=== PATIENT | male | born 1975 | race Caucasian/White ===

== ENCOUNTER 2019-12-21 04:12 | Inpatient (IN) | payer OTHER ==
[~2019-12-21] VITALS: Ht 175.3 cm; Wt 81.6 kg
--- NOTE | 2019-12-21 04:15 | NUR ---
C/O R BUTTOCK REDNESS, SWELLING X1 WEEK. ADMITS TO INJECTING HEROIN 1 WEEK AGO.
--- NOTE | 2019-12-21 04:29 | NUR ---
DR. KURTZ AT THE BED SIDE
[2019-12-21] MEDS ORDERED: VANCOMYCIN 1 GM in IV D5W 250 ML IV ONE (04:30)
[2019-12-21] MEDS ORDERED: VANCOMYCIN 1 GM VIAL ONE (04:31)
[2019-12-21] MEDS ORDERED: PIPERACILLIN /TAZOBACTAM 3.375 G VIAL IV ONE (04:31)
[2019-12-21] MEDS: PIPERACILLIN /TAZOBACTAM 3.375 G in IV D5W 50 ML IV ONE ×2 (04:50→05:00)
--- NOTE | 2019-12-21 04:50 | NUR ---
Tila ball in [facility] - 12/21/19 at 0519 by RUSSELL END TIME FOR ZOSYN: 0520 IV SITE: L ROCIO 20G
[2019-12-21 04:51] LABS: BASOPHILS # (AUTO) 0.1 /CMM (0.0-0.2); BASOPHILS % (AUTO) 0.4 % (0.0-2.0); EOSINOPHILS % (AUTO) 0.6 % (0.0-6.0); HEMATOCRIT 41 % (39-51); HEMOGLOBIN 13.7 g/dL (13.5-17.5); LYMPHOCYTES # (AUTO) 0.8 /CMM (0.8-4.8); LYMPHOCYTES % (AUTO) 6.7 % (20.0-44.0); MEAN CORPUSCULAR HGB CONC 33 g/dl (31.0-36.0); MEAN CORPUSCULAR VOLUME 79 fL (80-96); MONOCYTES # (AUTO) 0.8 /CMM (0.1-1.30); MONOCYTES % (AUTO) 6.3 % (2.0-12.0); NEUTROPHILS # (AUTO) 10.7 /CMM (1.8-8.9); PLATELET COUNT (AUTO) 405 /CMM (150-450); RED BLOOD CELL COUNT(AUTO) 5.23 MIL/uL (4.5-6.0); WHITE BLOOD COUNT (AUTO) 12.4 K/uL (4.3-11.0)
--- NOTE | 2019-12-21 05:00 | NUR ---
END TIME FOR ZOSYN: 0530 IV SITE: L THUMB 20G
[2019-12-21 05:01] LABS: CALCIUM, SERUM 8.9 mg/dL (8.5-10.1); CREATININE 0.9 mg/dL (0.6-1.3); POTASSIUM 3.9 mmol/L (3.5-5.1)
[2019-12-21] MEDS ORDERED: MAGNESIUM HYDROXIDE 30 ML UDC PO PRN (06:30)
[2019-12-21] MEDS ORDERED: ZOLPIDEM TARTRATE 5 MG TABLET PO PRN (06:30)
[2019-12-21] MEDS ORDERED: ONDANSETRON HCL/PF 4 MG/2 ML VIAL IVP PRN (06:30)
[2019-12-21] MEDS ORDERED: MAG HYDROX/AL HYDROX/SIMETH 30 ML UDC PO PRN (06:30)
[2019-12-21] MEDS ORDERED: Z GUARD REMEDY 2 OZ OINT TP PRN (06:30)
[2019-12-21] MEDS ORDERED: ACETAMINOPHEN 325 MG TABLET PO PRN (06:30)
--- NOTE | 2019-12-21 06:43 | NUR ---
BED ASSIGNMENT 321-1
[2019-12-21] MEDS ORDERED: FLUO10CA26 PO (06:46)
[2019-12-21] MEDS ORDERED: GABA-534 PO (06:46)
--- NOTE | 2019-12-21 06:49 | NUR ---
REPORT GIVEN TO RUDY
[2019-12-21] MEDS ORDERED: CLINDAMYCIN IV RTU IN D5W 900 MG/50 ML PIGGYBACK IV SCH (07:00)
--- NOTE | 2019-12-21 07:03 | NUR ---
PT WAS TRANSFERRED TO THE THIRD FLOOR IN STABLE CONDITION.
--- NOTE | 2019-12-21 07:15 | NUR ---
MS RN NOTES RECEIVED PATIENT IN BED, ALERT AND ORIENTED X4. ADMITTED TO UNIT. HOB ELEVATED. ORIENTED PATIENT TO ROOM, UNIT AND CALL LIGHT. RIGHT BUTTOCK ABSCESS RED, FIRM AND TENDER TO TOUCH. AMBULATORY WITH STEADY GAIT. DURING INTERVIEW, PATIENT STATED LAST HEROIN AND METH USE WAS 3 DAYS AGO. LEFT THUMB # 20 SL INTACT AND PATENT. BED IN LOWEST POSITION, LOCKED. CALL LIGHT WITHIN REACH. BED SIDERAILS UP X2.
[2019-12-21] MEDS: HYDROCODONE/APAP 5/325MG 1 EACH TABLET PO PRN ×2 (07:31→15:09)
[2019-12-21] MEDS: CLINDAMYCIN 900 MG in IV D5W 50 ML IV SCH ×2 (07:48→15:09)
[2019-12-21 08:00] VITALS: BP 115/66
[2019-12-21 16:00] VITALS: BP 96/47
[2019-12-21] MEDS: NICOTINE PATCH (14MG) 14 MG PATCH.TD24 TD SCH (16:38)
[2019-12-21] MEDS ORDERED: FEE PK DOSING 1 MIN EA MC ONE ×2 (17:30→17:34)
[2019-12-21] MEDS: VANCOMYCIN 1 GM in IV D5W 250 ML IV SCH (18:51)
--- NOTE | 2019-12-21 18:55 | NUR ---
MS RN NOTES PATIENT RESTING COMFORTABLY IN BED. HOB ELEVATED. DENIES ANY C/O PAIN NOR DISCOMFORT AT THIS TIME. LEFT THUMB # 20 INTACT AND PATENT. ABLE TO VERBALIZE NEEDS. BED IN LOWEST POSITION, LOCKED. CALL LIGHT WITHIN REACH. BED SIDERAILS UP X2. IN NO APPARENT DISTRESS.
--- NOTE | 2019-12-21 19:10 | NUR ---
MS RN NOTES RECEIVED PT IN BED AWAKE AND ABLE TO MAKE NEEDS KNOWN WITH FAMILY AT BEDSIDE. PT A/O X3. RESPIRATIONS EVEN AND UNLABORED WITH NO S/S OF ACUTE DISTRESS OR SOB NOTED. NO COMPLAINTS OF PAIN AT THIS TIME. PT NOTED WITH LEFT THUMB # 20 SL INTACT AND PATENT. SAFETY MEASURES IN PLACE WITH BED IN LOWEST LOCKED POSITION WITH SIDE RAILS UP X2. CALL LIGHT WITHIN REACH. WILL CONTINUE TO MONITOR.
[2019-12-21 20:00] VITALS: BP 102/54
[2019-12-21 20:33] VITALS: BP 102/54
[2019-12-22] MEDS: VANCOMYCIN 1 GM in IV D5W 250 ML IV SCH ×3 (02:26→18:00)
--- NOTE | 2019-12-22 06:15 | NUR ---
MS RN NOTES PT NOTED WITH WOUND PERFORATED, WOUND CULTURE COLLECTED. XEROFORM, AND SURGICAL DRESSING USED TO COVER. SX NOTIFIED. CHARGE NURSE MADE AWARE. AWAITING RESPONSE FROM SJasmeet MONCADA. WILL CONTINUE TO MONITOR.
--- NOTE | 2019-12-22 07:00 | NUR ---
MS RN NOTES PT REFUSED BLOOD DRAW AT THIS TIME. LAB WILL SEND ANOTHER TECH TO RETRY. WILL CONTINUE TO MONITOR.
--- NOTE | 2019-12-22 07:34 | NUR ---
MS RN NOTES PT IN BED AWAKE AND ABLE TO MAKE NEEDS KNOWN. PT A/O X3. RESPIRATIONS EVEN AND UNLABORED WITH NO S/S OF ACUTE DISTRESS OR SOB NOTED THROUGHOUT SHIFT. NO COMPLAINTS OF PAIN AT THIS TIME. PT NOTED WITH LEFT THUMB # 20 SL INTACT AND PATENT. PT KEPT CLEAN, DRY, AND COMFORTABLE. SAFETY MEASURES IN PLACE WITH BED IN LOWEST LOCKED POSITION WITH SIDE RAILS UP X2. CALL LIGHT WITHIN REACH. WILL ENDORSE TO ONCOMING NURSE FOR ANI.
--- NOTE | 2019-12-22 07:39 | NUR ---
MS RN NOTES RECEIVED PT IN BED RESTING COMFORTABLY IN MODERATE HIGH BACK REST. PT A/O X3. NO SIGNS OF DISTRESS NOTED AT THIS TIME. IV ACCESS ON LEFT THUMB # 20 SL, INTACT AND PATENT. SCHEDULE FOR SURGERY TODAY, REFUSED TO SIGNS CONSENT FOR NOW AND PER DECATING MACHINE OPERATOR REFUSED LABS. SAFETY MEASURES IN PLACE WITH BED IN LOWEST LOCKED POSITION WITH SIDE RAILS UP X2. CALL LIGHT WITHIN REACH. WILL CONTINUE TO MONITOR.
[2019-12-22 08:00] VITALS: BP 104/47
[2019-12-22] MEDS: NICOTINE PATCH (14MG) 14 MG PATCH.TD24 TD SCH (09:00)
[2019-12-22 16:00] VITALS: BP 104/53
[2019-12-22] MEDS ORDERED: GABAPENTIN 300 MG CAPSULE PO SCH (17:00)
--- NOTE | 2019-12-22 18:37 | NUR ---
MS RN NOTES PT IN BED RESTING COMFORTABLY IN MODERATE HIGH BACK REST. PT A/O X3. AT BEDSIDE. NO SIGNS OF DISTRESS NOTED. IV ACCESS ON LEFT THUMB # 20 SL, INTACT AND PATENT. REFUSED SURGERY EARLIER. REFUSED LABS AND VANCOMYCIN, EXPLAINED RISKS AND BENEFITS BUT STILL REFUSED. SAFETY MEASURES IN PLACE WITH BED IN LOWEST LOCKED POSITION WITH SIDE RAILS UP X2. CALL LIGHT WITHIN REACH. WILL ENDORSE TO [place] NURSE FOR ANI.
--- NOTE | 2019-12-22 19:00 | NUR ---
recieved alert and orientated agreed to have his blood drawn for vanco trough. then after the blood was frawn he stated he wants to go home at the bedside and MD Corcoran called and made aware patient left [id number] he was made aware of the severity of the infection and encouraged him to go to the clinic or go see the MD tomorrow the latest I told him he needs ATBS and to take me serious
[2019-12-22 20:10] LABS: CALCIUM, SERUM 8.6 mg/dL (8.5-10.1); CREATININE 0.7 mg/dL (0.6-1.3); MAGNESIUM 1.8 mg/dL (1.8-2.4); PHOSPHORUS 3.7 mg/dL (2.5-4.9); POTASSIUM 3.2 mmol/L (3.5-5.1)
[2019-12-22 20:11] LABS: BASOPHILS % (AUTO) 0.5 % (0.0-2.0); EOSINOPHILS % (AUTO) 2.3 % (0.0-6.0); HEMATOCRIT 41 % (39-51); HEMOGLOBIN 14.1 g/dL (13.5-17.5); LYMPHOCYTES # (AUTO) 0.9 /CMM (0.8-4.8); MEAN CORPUSCULAR HGB CONC 35 g/dl (31.0-36.0); MEAN CORPUSCULAR VOLUME 78 fL (80-96); MONOCYTES # (AUTO) 0.8 /CMM (0.1-1.30); MONOCYTES % (AUTO) 12.2 % (2.0-12.0); NEUTROPHILS # (AUTO) 4.7 /CMM (1.8-8.9); PLATELET COUNT (AUTO) 446 /CMM (150-450); RED BLOOD CELL COUNT(AUTO) 5.26 MIL/uL (4.5-6.0); WHITE BLOOD COUNT (AUTO) 6.6 K/uL (4.3-11.0)
[2019-12-22 20:27] VITALS: BP 103/52
[2019-12-22 21:14] VITALS: BP 103/52
[2019-12-23] MEDS ORDERED: VANCOMYCIN 1.25 GM in IV D5W 250 ML IV SCH (02:00)
[2019-12-23] MEDS ORDERED: Fluoxetine 10 mg capsule PO SCH (09:00)
[2019-12-24 07:08] LABS: HIV SCRN 4G wRFX Non Reactive (Non Reactive)
== END 2019-12-22 20:45 | disposition left against medical advice (07) | DRG 720 ==
LOC: ER 04:12 → MED 06:45
PROVIDERS: ADMIT Nurse Practitioner Acute Care; ATTEND Nurse Practitioner Acute Care
DX: A41.9 Sepsis, unspecified organism (principal); F11.10 Opioid abuse, uncomplicated; L03.317 Cellulitis of buttock; L02.31 Cutaneous abscess of buttock; Z72.0 Tobacco use; F32.9 Major depressive disorder, single episode, unspecified; F15.10 Other stimulant abuse, uncomplicated; Z71.6 Tobacco abuse counseling
CPT/HCPCS: 36415; 80048-TC; 80061-TC; 80202-TC; 83735-TC; 84100-TC; 85025-TC; 85730-TC; 86803; 87040-TC; 87070-TC; 87081-TC; 87186-TC; A6253; G0378; J2543; J3370; J3490; J7060